=== PATIENT | male | born 1980 | race Caucasian/White ===

== ENCOUNTER 2020-04-23 20:30 | Emergency (ER) | payer BC, SELFPAY ==
[2020-04-23 20:30] VITALS: BP 160/94; PULSE 98; RESP 22; O2SAT 99
[2020-04-23 20:47] VITALS: BMI 27.3
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
[2020-04-23 20:57] LABS: Basophils # 0.1 K/mm3 (0-0.2); Basophils % 0.6 % (0.1-2.0); Eosinophils # 0.3 K/mm3 (0.0-0.4); Eosinophils % 2.1 % (0.1-12.0); Hematocrit 45.7 % (42.0-52.0); Hemoglobin 15.7 g/dL (14.1-18.0); Lymphocytes # 5.9 K/mm3 (0.7-4.5); Lymphocytes % 41.8 % (10-50); Mean Corpuscular HGB Conc 34.4 g/dL (31.8-35.4); Mean Corpuscular Hemoglobin 31.9 pg (27.0-31.2); Mean Corpuscular Volume 92.7 fl (80-94); Mean Platelet Volume 10.3 fl (7.4-10.4); Monocytes # 0.7 K/mm3 (0.1-1.0); Monocytes % 4.9 % (1.7-9.3); Neutrophils # 7.2 K/mm3 (1.8-7.8); Neutrophils % 50.8 % (37.0-80.0); Platelet Count 254 K/mm3 (142-424); Red Blood Count 4.93 M/mm3 (4.60-6.20); White Blood Count 14.2 K/mm3 (4.8-10.8)
[2020-04-23 21:05] LABS: POC Glucose,Bedside 114 (70-110)
[2020-04-23 21:05] LABS: Chloride 107 mmol/L (98-107); Sodium 140 mmol/L (136-145)
[2020-04-23 21:06] LABS: Potassium 4.6 mmoL/L (3.5-5.1)
[2020-04-23 21:08] LABS: Alanine Aminotransferase 24 U/L (12-78); Albumin Level 4.6 g/dl (3.5-5.0); Albumin/Globulin Ratio 1.5 (1.1-1.8); Alkaline Phosphatase 90 U/L (38-126); Anion Gap 11.6 mEq/L (5-15); Aspartate Amino Transferase 29 U/L (17-59); Bilirubin,Total 0.3 mg/dl (0.2-1.3); Blood Urea Nitrogen 14 mg/dl (9-20); Calcium 9.1 mg/dl (8.4-10.2); Carbon Dioxide 26 mmol/L (22.0-30.0); Creatinine Clearance Estimated 172 mL/min (50-200); Estimated Glomerular Filt Rate 125 ml/min (>60); GFR (African American) 151 ML/MIN (>60); Globulin 3.1 g/dL (1.3-3.2); Glucose 121 mg/dl (74-100); Total Protein,Serum 7.7 g/dl (6.3-8.2)
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
--- NOTE | 2020-04-23 21:20 | [facility].EDTRAUMA ---
ED Disposition Clinical Impression: Trauma, blunt Right clavicle fracture Qualifiers: Encounter type: initial encounter Clavicle location: shaft Fracture type: closed Fracture alignment: displaced Qualified Code(s): S42.021A - Displaced fracture of shaft of right clavicle, initial encounter for closed fracture Cervical strain, acute Qualifiers: Encounter type: initial encounter Qualified Code(s): S16.1XXA - Strain of muscle, fascia and tendon at neck level, initial encounter Disposition: Home, Self-Care Condition on Discharge: Good Instructions: DI for Clavicle Fracture-Adult Additional Instructions: ice and see ortho for follow up Prescriptions: Ketorolac Tromethamine [Toradol 10mg tablet] 10 mg PO Q6H 5 Days #20 tab Prescription Printed Referrals: Provider,MD Harmony [Primary Care Provider] - Cynthia Moon MD [Physician] - - Critical Care Critical Care Time: No Attestation: On 04/23/20, the high probability of a clinically significant, sudden or life threatening deterioration of the following system(s) required my full and direct attention, intervention and personal management. The time I documented below is in addition to time spent performing reported procedures but includes the following listed in this critical care notation. Medical Decision Making - Medical Records Medical records reviewed: Yes: I reviewed the patient's medical records. - Luis Inquiry Pt receiving controlled substance: No Vital Signs: 04/23/20 20:30 04/23/20 21:40 04/23/20 21:45 Temperature 98.8 F Temperature Source Oral Pulse Rate [Right] 98 H 72 73 Respiratory Rate 22 20 Blood Pressure [Left Arm] 160/94 H 143/87 H 143/87 H Blood Pressure Mean [Left Arm] 116 105 105 Blood Pressure Source [Left Arm] Manual Cuff/ Auscultation Automatic Cuff Automatic Cuff Blood Pressure Position [Left Arm] Supine Supine Supine 02 Sat by Pulse Oximetry 99 98 98 Oxygen Delivery Method Room Air Room Air Room Air - Lab Data Lab results reviewed: Yes: I reviewed the patient's lab results. Lab Results 04/23/20 20:35: POC Glucose 114 H 04/23/20 20:45: WBC 14.2 H, RBC 4.93, Hgb 15.7, Hct 45.7, MCV 92.7, MCH 31.9 H, MCHC 34.4, RDW 14.0, Plt Count 254, MPV 10.3, Neut % (Auto) 50.8, Lymph % (Auto) 41.8, Baker % (Auto) 4.9, Eos % (Auto) 2.1, Baso % (Auto) 0.6, Neut # (Auto) 7.2, Lymph # (Auto) 5.9 H, Baker # (Auto) 0.7, Eos # (Auto) 0.3, Baso # (Auto) 0.1 04/23/20 20:45: Sodium 140, Potassium 4.6, Chloride 107, Carbon Dioxide 26, Anion Gap 11.6, BUN 14, Creatinine 0.70, Estimated Creat Clear 172, Estimated GFR 125, Est GFR ( Amer) 151, Glucose 121 H, Calcium 9.1, Total Bilirubin 0.3, AST 29, ALT 24, Alkaline Phosphatase 90, Total Protein 7.7, Albumin 4.6, Globulin 3.1, Albumin/Globulin Ratio 1.5 Result diagrams: 04/23/20 20:45 04/23/20 20:45 Orders (Tests/Meds): ED MEDICATIONS Generic Name Dose Route Start Last Admin Trade Name Freq PRN Reason Stop Dose Admin Sodium Chloride 1,000 mls @ 999 mls/hr 04/23/20 21:30 04/23/20 21:32 Sod Chlor 0.9% 1000ml Bag IV 04/23/20 22:30 999 mls/hr .Q1H1M ALICIA Administration Sodium Chloride 10 ml 04/23/20 21:27 04/23/20 21:28 Rad-Saline Flush 10ml Syringe IV 05/23/20 21:26 10 ml NEEDED PRN Administration Maintain IV Site Discontinued Medications Generic Name Dose Route Start Last Admin Trade Name Freq PRN Reason Stop Dose Admin Ioversol 100 ml 04/23/20 21:27 04/23/20 21:28 Rad-Optiray 350 150ml Vial IV 04/23/20 21:28 100 ml ONCE ONE Administration Ketorolac Tromethamine 30 mg 04/23/20 21:28 04/23/20 21:32 Toradol 30mg/Ml Vial IV 04/23/20 21:29 30 mg ONCE ONE Administration Sodium Chloride 40 ml 04/23/20 21:27 04/23/20 21:27 Rad-Ns 50ml Vial IV 04/23/20 21:28 40 ml ONCE ONE Administration ORDERS Category Date Time Status CT abdomen pelvis w con Stat Cat Scan 04/23/20 20:[address] angio chest Stat C
[2020-04-23 21:40] VITALS: BP 143/87; PULSE 72; O2SAT 98
[2020-04-23 21:45] VITALS: BP 143/87; PULSE 73; RESP 20; TEMP 37.1; O2SAT 98
[2020-04-23 22:07] VITALS: BP 146/82; PULSE 73; RESP 18; TEMP 37.1; O2SAT 98
== END 2020-04-23 22:11 | disposition home or self-care (01) ==
PROVIDERS: Emergency Provider Emergency Medicine
DX: S42.021A Displaced fracture of shaft of right clavicle, initial encounter for closed fracture (principal); S16.1XXA Strain of muscle, fascia and tendon at neck level, initial encounter; V29.3XXA Motorcycle rider (driver) (passenger) injured in unspecified nontraffic accident, initial encounter; Y92.410 Unspecified street and highway as the place of occurrence of the external cause; F17.210 Nicotine dependence, cigarettes, uncomplicated
CPT/HCPCS: 29799; 70450; 71045; 71275; 72125; 72170; 74177; 80053; 82962; 85025; 96365; 96375; 99283; 99284; Q9967